=== PATIENT | female | born 1980 | race Caucasian/White ===

== ENCOUNTER → 2017-03-23 | Outpatient (CLI) | payer OTHER ==
--- NOTE | 2017-03-23 16:52 | REP ---
Clinical: Abnormal uterine bleeding . Technique: Transabdominal pelvic ultrasound followed by transvaginal examination for better evaluation of the endometrium and adnexa with color Doppler evaluation of the ovaries. Findings: Bladder is unremarkable and measures 11.5 x 4.4 x 4.8 cm . Normal anteverted uterus measures 9.1 x 5.5 x 7.1 cm . The endometrial complex measures 6.7 mm thickness and a 1.8 x 1.0 x 2.1 cm endometrial polyp is identified. No discrete uterine fibroids are appreciated. Bilateral ovaries are normal in appearance and vascularity without evidence for torsion. Right ovary measures 2.9 x 1.6 x 1.7 cm with 1.5 cm paraovarian cyst ; R I = 0.35 . Left ovary measures 3.7 x 2.0 x 3.4 cm with 2.3 cm hemorrhagic follicle ; R I = 0.63 . Small amount of pelvic free fluid nonspecific. Impression: 1. 2.1 cm endometrial polyp possibly related to patient's symptoms. No discrete uterine fibroids are identified. 2. Small amount of pelvic free fluid with 1.5 cm right paraovarian cyst and 2.3 cm left hemorrhagic follicle may warrant followup examination in 4-6 weeks to evaluate for resolution. Signed by Dayton Land MD 03/23/2017 04:44 P
--- NOTE | 2017-03-24 11:20 | REP ---
REASON: Followup deep white matter signal hyperintensity seen on prior exam of 08/01/2015 from an outside institution which was reviewed. Today's examination was performed before and after the administration of intravenous gadolinium. GADOLINIUM UTILIZED: 13 mL of [employer]. The craniovertebral junction is again seen to be normal. No abnormal signal has developed in the imaged portion of the spinal cord. The ventricles and sulci are again seen to be within normal limits. There are no acute extra-axial fluid collections. There is no mass effect on the noncontrast scan, and there are no enhancing mass lesions on the postcontrast scan. There is no change in appearance of the deep cerebral white matter. A few tiny FLAIR signal hyperintensities are noted, status quo. The orbital and petrous structures, cerebellopontine angles, and posterior fossa are again seen to be within normal limits. The sella turcica, cavernous, and paracavernous structures are unchanged remaining within normal limits. The imaged paranasal sinuses and mastoid air cells are again seen to be clear. No abnormal signal is seen in the DWI or ADC mapped images that would be considered consistent with an area of restricted diffusion due to stroke. IMPRESSION: There are a few tiny nonspecific deep white matter signal hyperintensities which are completely unchanged from the prior exam. Followup should be obtained as clinically indicated. Signed by Gerald Padilla DO 03/24/2017 02:58 P
== END ==
LOC: M RAD 15:47
PROVIDERS: ATTEND Obstetrics & Gynecology
DX: G93.9 Disorder of brain, unspecified (principal); N92.0 Excessive and frequent menstruation with regular cycle
CPT/HCPCS: 70553; 76830; 76856; 93976; A9576